=== PATIENT | female | born 1985 | race Caucasian/White ===

== ENCOUNTER 2018-04-12 06:00 | Day surgery (SDC) | payer OTHER ==
[~2018-04-12] VITALS: Ht 157.5 cm; Wt 68.0 kg
== END 2018-04-13 08:00 | disposition home or self-care (01) ==
LOC: SURH 06:00 → O/R 06:00 → CIR.AMB 06:00 → O/R 06:06 → SURH 06:06 → EDSTATUS 11:45 → SURH 18:30 → O/R 19:31 → SURG 19:31 → O/R 19:36 → SURG 19:36 → O/R 04-13 → CIR.AMB 04-13 08:00
DX: N80.1 Endometriosis of ovary (principal); N83.12 Corpus luteum cyst of left ovary

== ENCOUNTER 2021-02-18 06:00 | Day surgery (SDC) | payer OTHER ==
[~2021-02-18] VITALS: Ht 157.5 cm; Wt 67.6 kg
== END 2021-02-18 23:20 | disposition home or self-care (01) ==
LOC: CIR.AMB 06:00 → OB/GYN 06:00 → O/R 06:00 → EDSTATUS 07:00 → OB/GYN 07:00 → CIR.AMB 23:20 → O/R 23:20
PROVIDERS: ATTEND Obstetrics & Gynecology Gynecologic Oncology
PROC: 0UJD4ZZ Inspection of Uterus and Cervix, Percutaneous Endoscopic Approach (ICD-10-PCS; principal; 2021-02-18 10:30)
DX: N80.1 Endometriosis of ovary (principal); K43.9 Ventral hernia without obstruction or gangrene; Z53.8 Procedure and treatment not carried out for other reasons; R97.1 Elevated cancer antigen 125 [CA 125]; R19.00 Intra-abdominal and pelvic swelling, mass and lump, unspecified site

== ENCOUNTER 2021-05-31 07:00 | Inpatient (IN) | payer OTHER ==
[~2021-05-31] VITALS: Ht 157.5 cm; Wt 67.1 kg
== END 2021-06-05 09:53 | disposition home or self-care (01) | DRG 742 ==
LOC: SURG-SUITE 06-03 06:10 → O/R 06-03 06:10 → SURH 06-03 07:00 → SURG-SUITE 06-03 14:29
PROVIDERS: Surgery; ADMIT Obstetrics & Gynecology Gynecologic Oncology; ATTEND Obstetrics & Gynecology Gynecologic Oncology
PROC: 0DUU07Z Supplement Omentum with Autologous Tissue Substitute, Open Approach (ICD-10-PCS; 2021-06-03)
PROC: 0WQF0ZZ Repair Abdominal Wall, Open Approach (ICD-10-PCS; 2021-06-03)
PROC: 0DJW4ZZ Inspection of Peritoneum, Percutaneous Endoscopic Approach (ICD-10-PCS; 2021-06-03)
PROC: 0DNW0ZZ Release Peritoneum, Open Approach (ICD-10-PCS; 2021-06-03)
PROC: 0DTJ0ZZ Resection of Appendix, Open Approach (ICD-10-PCS; 2021-06-03)
PROC: 0WJG4ZZ Inspection of Peritoneal Cavity, Percutaneous Endoscopic Approach (ICD-10-PCS; 2021-06-03)
PROC: 0DJD8ZZ Inspection of Lower Intestinal Tract, Via Natural or Artificial Opening Endoscopic (ICD-10-PCS; 2021-06-03)
PROC: 0UT90ZZ Resection of Uterus, Open Approach (ICD-10-PCS; principal; 2021-06-03 07:00)
PROC: 0UT20ZZ Resection of Bilateral Ovaries, Open Approach (ICD-10-PCS; 2021-06-03 07:00)
PROC: 0UT70ZZ Resection of Bilateral Fallopian Tubes, Open Approach (ICD-10-PCS; 2021-06-03 07:00)
DX: N80.0 Endometriosis of uterus (principal); K42.0 Umbilical hernia with obstruction, without gangrene; K43.6 Other and unspecified ventral hernia with obstruction, without gangrene; N72 Inflammatory disease of cervix uteri; N80.1 Endometriosis of ovary; D27.0 Benign neoplasm of right ovary; N80.2 Endometriosis of fallopian tube; K66.0 Peritoneal adhesions (postprocedural) (postinfection); K36 Other appendicitis